=== PATIENT | female | born 1960 | race Caucasian/White ===

== ENCOUNTER 2017-01-21 21:24 | Inpatient (IN) | payer MEDICARE ==
--- NOTE | ~2017-01-21 | A ---
[facility] Nutrition Therapy DATE: 01/23/17 Patient: MORALES Putnam MAYCO Physician: MELLISA Address: [address] Room/Bed: [address], Zip: [place] [id number] Admit Date: 01/21/17 Date of : [birth year] Height: 5 4 Weight: [phone] NUTRITIONAL ASSESSMENT: REASON: Seen per consult re: multiple gastric surgeries, bypass, eating small meals Admitting Dx: 56 y/o female admitted with questionable seizure, found unconscious at home PMH: Seizure disorder, CVA x 2 (most recent Dec 2016), HTN, hx obesity, gastric bypass in 1995 (per patient), dylan, colon resection, Hep A, blood clots Anthropometrics: Ht: 64", Wt: 138 lbs, BMI: 23 (normal) Labs: No labs available Meds: Phenergan, Mag-al, Milk of Mg, Pepcid, Celexa, Keppra, Neurontin, Ambien, Lorazepam I/O & Bowel function: Hx colon resection, c/o intermittent diarrea Assessment: Chart reviewed, events noted. See admitting dx and especially PMH as stated above. Patient is in disability and lives with her 25 y/o son who has tourette's syndrome and helps with her care, she is able to complete ADL's. RD consulted due to her hx of gastric bypass in 1995 and colon resection, consult stated the patient eats small meals. Current BMI is normal, no past weights available. She scored 0 points on the malnutrition risk score and reported fair appetite during needs assessment with no recent weight change. She is on a regular diet. During RD interview patient reports overall weight loss due to gastric bypass surgery in 1995 to be approx. 120 lbs, but that she has maintained her current weight for years now. She confirms eating small meals throughout the day, which is appropriate with patients who have had bypass surgery. She does c/o intermittent diarrhea but unsure whether this is because of the food here at [facility] or due to her colon resection, says the resection has left her with diarrhea at times. RD encouraged small frequent meals to maintain adequate kcal/protein intake, patient agreed. She will receive 3 meals and 2 snacks while here at [facility], will add in an additional daily snack, she is requesting pudding. She reports no difficulties chewing/swallowing, note CVA last month. She does not wish to receive any oral nutrition supplements at this time, stating "they go right through me." See RD recs below, RD will follow treatment course. Dx: Altered GI function r/t past GI surgeries AEB RD consult, PMH, intermittent diarrhea, need for small meals and snacks. Intervention: 3 meals and 3 snacks daily, MVI with minerals, Loperamide prn Monitoring, Evaluation and Goals: 1. Adequate oral intake > 50% of meals with minimal c/o N/V/D. [facility] Therapy DATE: 01/23/17 Patient: MORALES MAO Physician: MELLISA Address: [address] [place] [address] APT Room/Bed: [address], Zip: [place] [address] Admit Date: 01/21/17 Date of : [birth year] Height: 5 4 Weight: [id number] 2. Maintain current weight status, prevent unintentional loss. 3. Prevent/correct micro/macronutrient deficiencies (take daily MVI). 4. Maintain adequate fluid status (monitor fluid intake/diarrhea). Monitor: Per protocol, criteria to determine if above goals met Recommendations: *See assessment above 1. Continue regular diet with 3 meals and 3 snacks daily (RD adding extra daily snack of chocolate or vanilla pudding per patient request). This patient requires smaller more frequent meals/snacks due to hx of gastric bypass surgery (performed in 1995). 2. Please add a daily MVI with minerals and Lopermide prn to the patient's medication regimen. Monitor GI function and fluid intake. 3. Please weigh q 3 days for monitoring purposes. The patient has had an overall weight loss of approx. 120 lbs following bariatric surgery but has been able to maintain her current weight for years, she is of normal weight. RD will follow treatment course Mild-moderate nutrition risk Respectfully, Jody Castano, RD, LD [facility] cc: client file
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
--- NOTE | ~2017-01-21 | PN ---
Unit #: [id number] #: [id number] Patient: MORALES MAO [id number] [facility] [address] [place] [address] [id number] MR#: [id number] NAME: MORALES MAO. ROOM: P113 Age: 56 Sex: F Admission Date: 01/21/2017 : 1960 Attending Physician: Shanna Navarrete M.D. Admitting Physician: Shanna Navarrete M.D. Primary Care Physician: Primary Care Physician Guadalupe ELLISON PROGRESS NOTES DATE 01/23/2017 DISCUSSION Ms. Mao is a 56-year-old white female with mood disorder who was seen today and chart was reviewed and case was discussed with the staff. She has been anxious, withdrawn and rather seclusive to herself and has complaining of persistent depressive symptoms. Meanwhile, she has been taking the medications and tolerating them fairly well with no reported side effects. MENTAL STATUS EXAMINATION Middle-aged white female who was casually dressed with fair personal hygiene and appears to be in no acute distress or discomfort. She was awake and alert on interaction with intact orientation. Her mood was anxious and depressed with congruent affect. Her speech is slow and restricted in content. She reports having suicidal ideation but denies any homicidal ideation. Her insight and judgement remains slightly impaired. TREATMENT PLAN 1. Will continue on current medications and treatment protocol and will monitor response to medications and make further adjustments as needed. 2. Will continue to follow up. Dictated by... Mica Matute/bren TD: 01/24/2017 11:16 JOB #: [id number] Unit #: [id number] #: [id number] Patient: MORALES MAO PEANOHEMI PROGRESS NOTES X Shanna Navarrete MD PROGRESS NOTE
--- NOTE | ~2017-01-21 | HP ---
Unit #: [id number] #: [id number] Patient: MORALES MAO [id number] [place] [address] [id number] I MR#: [id number] NAME: MORALES MAO. ROOM: P113 Age: 56 Sex: F Admission Date: 01/21/2017 : 1960 Attending Physician: Shanna Navarrete M.D. Admitting Physician: Shanna Navarrete M.D. Primary Care Physician: Primary Care Physician No HISTORY AND PHYSICAL HISTORY OF PRESENT ILLNESS Morales is a 56 year old admitted to [address] [place] [address] after she was found unconscious at home after a seizure (?). PAST MEDICAL HISTORY 1. Seizure disorder. 2. Patient reports a history of CVA x2, last stroke December 2016. 3. High blood pressure. 4. Obesity. PAST SURGICAL HISTORY 1. Right arm. 2. Gastric banding. 3. Colon resection. 4. Cholecystectomy. ALLERGIES Penicillin, Tylenol, ibuprofen, tramadol, hydrocodone, codeine. SOCIAL HISTORY She denies cigarettes, alcohol and illicit drug use. FAMILY HISTORY Medically noncontributory. REVIEW OF SYSTEMS CONSTITUTIONAL: No fever or chills. HEENT: Denies any sore throat, ear pain or runny nose. CARDIOVASCULAR: Denies chest pain, irregular heart rhythm or palpitations. CHEST: Denies shortness of breath or cough. No hemoptysis. GASTROINTESTINAL: Denies nausea, vomiting, diarrhea or chronic constipation. ENDOCRINE: Denies history of increased thirst or urination. No recent significant weight loss or gain. GENITOURINARY: Denies dysuria, frequency, or hematuria. SKIN: Denies any rashes. HEMATOLOGIC: Denies history of increased bleeding or bruising. MUSCULOSKELETAL: Denies any hot, swollen joints. No generalized muscle pain. NEUROLOGIC: Denies problems with vision or speech. No frequent, severe headaches. No numbness, tingling or weakness in any extremities. Denies loss of bladder or bowel control. Unit #: [id number] #: [id number] Patient: MORALES MAO CURRENT MEDICATIONS 1. Celexa 20 mg daily. 2. Pepcid 20 mg b.i.d. 3. Catapres 0.2 mg t.i.d. 4. Trileptal 600 mg b.i.d. 5. Milk of Magnesia p.r.n. 6. Maalox p.r.n. 7. Phenergan 25 mg t.i.d. 8. Catapres 0.1 mg t.i.d. 9. Ambien 5 mg q.h.s. 10. Lorazepam 1 mg b.i.d. 11. Neurontin 300 mg t.i.d. 12. Keppra 1500 mg b.i.d. PHYSICAL EXAMINATION GENERAL: Alert, obese, no apparent distress. VITAL SIGNS: Blood pressure 130/74, heart rate 80, respirations 16, temperature 98.6. WEIGHT: Not recorded. HEIGHT: 5 feet 4 inches. SKIN: Warm and dry without rash or lesion. HEENT: Normocephalic. TMs not viewed. Oral and nasal passages clear. Conjunctivae clear. PERRLA. EOMs intact. NECK: Supple without lymphadenopathy or thyromegaly. HEART: Regular rate and rhythm without murmur. LUNGS: Clear. ABDOMEN: Soft, nontender. : Not done. EXTREMITIES: No evidence of cyanosis, clubbing or edema. Moves all without focal deficit. NEUROLOGICAL: Grossly within normal limits. Cranial Nerves: II: Visual elias are intact. III, IV AND : Extraocular movements are intact. Pupils are equal, round and reactive to light. V: Facial sensation is grossly normal. VII: Facial movements and expression are normal. VIII: Auditory acuity grossly intact. IX, X: Uvula is midline. Phonation is normal. XI: Patient shrugs shoulders and turns head normally. XII: Tongue protrudes in the midline. Sensory and Motor Function: Sensory and motor sensation is grossly normal. Motor: moves all extremities well. Coordination: Gait is normal. Deep Tendon Reflexes: Intact. IMPRESSION Psychiatric admission. RECOMMENDATIONS PSYCHIATRIC: Per psychiatrist. MEDICAL: See no contraindications to participate in facility's activities. MEDICAL PROGNOSIS Good. MEDICAL CONDITION Stable. Unit #: [id number] #: [id number] Patient: MORALES MAO Dictated by... Gris Santo P.A.-C. for Mica Alcala/bren TD: 01/22/2017 18:41 JOB #: [id number] HISTORY AND PHYSICAL X Gris Santo HISTORY AND PHYSICAL
--- NOTE | ~2017-01-21 | CO ---
Unit #: [id number] #: [id number] Patient: MORALES MAO [id number] [place] [address] [id number] MR#: [id number] NAME: MORALES MAO. ROOM: P113 Age: 56 Sex: F Admission Date: 01/21/2017 : 1960 Attending Physician: Shanna Navarrete M.D. Consultation Date: 01/22/2017 CONSULTATION REPORT She gives a history of seizure disorder. She was seen for admission H and P on 01/22/2017. This was outlined, and list of her medications was catalogued. Please see H and P dated 01/22/2017. Dictated by... Gris Santo P.A.-C. for Mica Alcala/matilda TD: 01/24/2017 02:46 JOB #: [id number] CONSULTATION REPORT X Gris Santo CONSULTATION REPORT
--- NOTE | ~2017-01-21 | DS ---
Unit #: [id number] #: [id number] Patient: MORALES PERSON [id number] [facility] [address] [place] [address] [id number] I MR#: [id number] NAME: MORALES PERSON. ROOM: P113 Age: 56 Sex: F Admission Date: 01/21/2017 : 1960 Discharge Date: 01/27/2017 Attending Physician: Shanna Navarrete M.D. Primary Care Physician: Primary Care Physician No DISCHARGE SUMMARY IDENTIFYING DATA Ms. Person is a 56-year-old white female, who is a resident of [place], [place], and was transferred to us from [facility]. DISCHARGE DIAGNOSES Psychiatric: Bipolar disorder, most recent episode depressed, recurrent, moderate, without psychotic features. Medical: Seizure disorder. Stressors: Moderate psychosocial stressors. HISTORY OF PRESENT ILLNESS Please see initial psychiatric evaluation for details. PAST PSYCHIATRIC HISTORY Please see initial psychiatric evaluation for details. PAST MEDICAL HISTORY Please see initial psychiatric evaluation for details. HOSPITAL COURSE The patient was admitted to the adult psychiatric unit at [facility]ena [facility] and was oriented to the hospital environment. Routine p.r.n. medications were initiated, and she was started back on her home medications and medications were adjusted as the patient was exhibiting some significant depression and anxiety. She was taking the medications regularly and was tolerating them fairly well and was able to show a decent therapeutic response and was willing to continue treatment on an outpatient basis and as such, it was decided that she will be discharged home and will continue treatment on an outpatient basis. DISCHARGE MEDICATIONS Celexa 20 mg a day for depression, Trileptal 600 mg b.i.d. for bipolar, Keppra 1500 mg b.i.d. for seizure disorder, Neurontin 300 mg t.i.d. for neuropathy, Ativan 1 mg b.i.d. for anxiety, Ambien 5 mg at bedtime for sleep, Pepcid 20 mg a day for acid reflux. DISCHARGE CONDITION Stable. PROGNOSIS Fair. Unit #: [id number] #: [id number] Patient: MORALES PERSON Dictated by... Shanna Navarrete M.D. IAA/modl TD: 01/28/2017 04:22 JOB #: [id number] DISCHARGE SUMMARY X Shanna Navarrete MD DISCHARGE SUMMARY
--- NOTE | ~2017-01-21 | PN ---
Unit #: [id number] #: [id number] Patient: MORALES MAO [id number] [facility] [address] [place] [address] [id number] MR#: [id number] NAME: MORALES MAO ROOM: P113 Age: 56 Sex: F Admission Date: 01/21/2017 : 1960 Attending Physician: Shanna Navarrete M.D. Admitting Physician: Shanna Navarrete M.D. Primary Care Physician: Primary Care Physician Guadalupe ELLISON PROGRESS NOTES DATE OF SERVICE: 01/25/2017 SUBJECTIVE Ms. Mao is a 56-year-old white female, who was seen today and chart was reviewed and the case was discussed with the staff. She has been anxious, withdrawn, and rather seclusive to herself, but has been calm and cooperative with the treatment recommendations as she has been taking the medications and tolerating them fairly well with no reported side effects. MENTAL STATUS EXAMINATION Middle-aged white female, who was casually dressed with fair personal hygiene, appears to be in no acute distress or discomfort. She was awake and alert on interaction with intact orientation. Her mood was anxious and depressed with a congruent affect. She denies any suicidal or homicidal ideations. Her insight and judgment remain slightly impaired. TREATMENT PLAN 1. We will continue her on her current medications and treatment protocol. We will monitor her response to the medications and make further adjustments as needed. 2. We will continue to follow up. Dictated by... Mica Matute/matilda TD: 01/25/2017 14:46 JOB #: [id number] [facility] PROGRESS NOTES X Shanna Navarrete MD PROGRESS NOTE
--- NOTE | ~2017-01-21 | PN ---
Unit #: [id number] #: [id number] Patient: MORALES MAO [id number] [facility] [address] [place] [address] [id number] MR#: [id number] NAME: MORALES MAO. ROOM: P113 Age: 56 Sex: F Admission Date: 01/21/2017 : 1960 Attending Physician: Shanna Navarrete M.D. Admitting Physician: Shanna Navarrete M.D. Primary Care Physician: Primary Care Physician Guadalupe DORSEY NOTES DATE January 26, 2017 DISCUSSION Ms. Mao is a 56-year-old white female, who was seen today and chart was reviewed and the case was discussed with the staff. She has been anxious, withdrawn, and rather seclusive to herself. Meanwhile, she has been cooperative with the treatment recommendations and she has been taking her medications and has been reporting improvement in her depression and anxiety. MENTAL STATUS EXAMINATION Middle-aged white female, who was casually dressed with fair personal hygiene and appears to be in no acute distress or discomfort. She was awake and alert on interaction with intact orientation. Her mood was anxious with a congruent affect. She denies any suicidal or homicidal ideations. Her insight and judgment remain slightly impaired. TREATMENT PLAN 1. We will continue her on her current medications and treatment protocol, and will monitor her response to the medications, and make further adjustments as needed. 2. We will continue to followup. Dictated by... Mica Matute/gloria TD: 01/27/2017 06:38 JOB #: [id number] Unit #: [id number] #: [id number] Patient: MORALES MAO [place] PROGRESS NOTES X Shanna Navarrete MD PROGRESS NOTE
== END 2017-01-27 10:00 | disposition home or self-care (01) | DRG 885 ==
LOC: P1S 21:24 → POF 01-26 14:17 → P1S 01-26 14:20
DX: F31.32 Bipolar disorder, current episode depressed, moderate (principal); G40.909 Epilepsy, unspecified, not intractable, without status epilepticus; F41.9 Anxiety disorder, unspecified; Z88.0 Allergy status to penicillin; Z88.8 Allergy status to other drugs, medicaments and biological substances; Z88.6 Allergy status to analgesic agent